=== PATIENT | female | born 1985 | race African-American/Black ===

== ENCOUNTER 2017-02-24 14:08 | Emergency (ER) | payer SELFPAY ==
[~2017-02-24] VITALS: Ht 160 cm; Wt 61.2 kg
[2017-02-24 15:30] VITALS: BP 108/65
--- NOTE | 2017-02-24 15:34 | PHYS DOC ---
Past Medical History Past Medical History: Depression, Other Additional Past Medical Histor: seasonal allergies Past Surgical History: No Surgical History Alcohol Use: None Drug Use: Marijuana Adult General Chief Complaint Chief Complaint: MULTIPLE COMPLAINTS [facility] HPI Patient is a 32 year old male who presents with who complaints including several hours of emotional distress, some nonspecific chest discomfort, and concerned that she might be . That's to depression and feeling unsafe at home with the feeling of being threatened by her mother and brother who she lives with. Onset of chest discomfort was several hours ago pressure tightness, no diaphoresis no radiation of the pain exertion doesn't make it worse appears to be stress related. Last menstrual period was within the last 8 weeks. Denies suicidal or homicidal ideation. Denies hearing voices or visual hallucinations. Denies pain on psych medications. Review of Systems Review of Systems Constitutional: Denies fever or chills [] Eyes: Denies change in visual acuity, redness, or eye pain [] HENT: Denies nasal congestion or sore throat [] Respiratory: Denies cough or shortness of breath [] Cardiovascular: No additional information not addressed in HPI [] GI: Denies abdominal pain, nausea, vomiting, bloody stools or diarrhea [] : Denies dysuria or hematuria [] Musculoskeletal: Denies back pain or joint pain [] Integument: Denies rash or skin lesions [] Neurologic: Denies headache, focal weakness or sensory changes [] Endocrine: Denies polyuria or polydipsia [] Current Medications Current Medications Current Medications Medications (Trade) Dose Ordered Sig/[facility] Start Time Stop Time Status Last Admin Dose Admin Lorazepam (Ativan) 1 mg 1X ONCE 02/24/17 15:45 02/24/17 15:50 DC 02/24/17 15:49 1 MG Ondansetron HCl (Zofran) 4 mg 1X ONCE 02/24/17 16:30 02/24/17 16:31 DC 02/24/17 16:21 4 MG Allergies Allergies Allergies Coded Allergies Type Severity Reaction Last Updated Verified Penicillins Allergy Intermediate Rash 02/24/17 Yes Physical Exam Physical Exam Constitutional: Well developed, well nourished, crying hysterically, non-toxic appearance. [] HENT: Normocephalic, atraumatic, bilateral external ears normal, oropharynx moist, no oral exudates, nose normal. [] Eyes: PERRLA, EOMI, conjunctiva normal, no discharge. [] Neck: Normal range of motion, no tenderness, supple, no stridor. [] Cardiovascular:Heart rate regular rhythm, no murmur [] Lungs & Thorax: Bilateral breath sounds clear to auscultation [] Abdomen: Bowel sounds normal, soft, no tenderness, no masses, no pulsatile masses. [] Skin: Warm, dry, no erythema, no rash. [] Back: No tenderness, no CVA tenderness. [] Extremities: No tenderness, no cyanosis, no clubbing, ROM intact, no edema. [] Neurologic: Alert and oriented X 3, normal motor function, normal sensory function, no focal deficits noted. [] Psychologic: Depressed affect, judgement normal, mood depressed tearful; no SI or HI; no hallucinations visual or auditory.. [] Current Patient Data Vital Signs Vital Signs Date Time Temp Pulse Resp B/P (MAP) Pulse Ox O2 Delivery O2 Flow Rate FiO2 02/24/17 15:30 93 21 108/65 (79) 99 02/24/17 15:00 Room Air 02/24/17 14:26 98.3 98.3 Lab Values Laboratory Tests Test 02/24/17 14:59 POC Urine HCG, Qualitative Hcg negative (Negative) EKG EKG EKG normal sinus rhythm rate of 93 no STEMI QTC normal by interpretation[] Radiology/Procedures Radiology/Procedures Chest x-ray[ refused by patient] Course & Med Decision Making Course & Med Decision Making Pertinent Labs and Imaging studies reviewed. (See chart for details) [Psychiatric evaluation team was called and will be assessing the patient for safety disposition] 1735: She has been seen and evaluated by the psychiatric evaluation team and they've attempted to try to get her to a penitentiary with her children but this is not possible due to lack of availability. In the meantime she'll be dismissed back home and I have counseled the patient regarding stopping smoking marijuana low prescribe an inhaler to help with her cough which is due to chronic marijuana abuse. Patient is verbally abusive to myself and the staff demanding an ultrasound because she doesn't believe the urine test is actually negative. The patient also got quite angry when I recommended she stop smoking marijuana as I felt that this is contributing to her cough and emotional lability. She was stable for outpatient follow-up. She does not appear to be psychotic, suicidal or homicidal. Dragon Disclaimer Dragon Disclaimer This electronic medical record was generated, in whole or in part, using a voice recognition dictation system. Departure Departure Impression: Primary Impression: Adjustment disorder with depressed mood Additional Impressions: Chest pain Marijuana abuse Disposition: 01 HOME, SELF-CARE Condition: STABLE Patient Instructions: Adjustment Disorder, Cough, Adult, [id number], Marijuana Abuse-Brief Scripts Albuterol Sulfate (PROVENTIL HFA INHALER) 6.7 Gm Hfa.aer.ad 1 PUFF IH PRN Q4HRS Y for FOR ASTHMA, #1 INHALER 0 Refills Prov: MIMI LOPEZ MD 02/24/17 Problem Qualifiers MIMI LOPEZ MD Feb 24, 2017 15:34
[2017-02-24] MEDS ORDERED: ONDANSETRON PF 4 MG/2 ML VIAL. IV ONE (16:30)
[2017-02-24] MEDS ORDERED: PROVENTIL HFA6.7 GM IH (17:38)
--- NOTE | 2017-02-25 07:15 | EKG ---
[facility] [address] [place] [address] Test Date: 2017-02-24 Test Time: 14:45:36 Pat Name: FAVIOLA SANDOVAL Department: Room: Gender: F [employer]ting Tool [employer]: : 1985 Requested By: MIMI LOPEZ Order Number: [id number] Reading MD: Jigna Martin Measurements Intervals [place] Rate: 93 P: 0 AR: 138 QRS: 19 QRSD: 78 T: 29 QT: 364 QTc: 455 Interpretive Statements SINUS RHYTHM NORMAL EKG Electronically Signed On 02-28-2017 10:54:10 CDT by Jigna Martin
== END 2017-02-24 17:50 | disposition home or self-care (01) ==
LOC: ER 14:08
DX: F43.21 Adjustment disorder with depressed mood (principal); R07.89 Other chest pain; F12.10 Cannabis abuse, uncomplicated; Z88.0 Allergy status to penicillin
CPT/HCPCS: 81025; 93005; 96374; 96375; 99284; J2060; J2405